=== PATIENT | female | born 1975 | race Two or more races ===

== ENCOUNTER 2017-02-04 11:08 | Emergency (ER) | payer MEDICAID, MEDICARE ==
[~2017-02-04] VITALS: Ht 165.1 cm; Wt 105.0 kg
[2017-02-04 12:49] VITALS: BP 132/72
== END 2017-02-04 12:59 | disposition home or self-care (01) ==
LOC: ER 12:33
DX: J45.909 Unspecified asthma, uncomplicated (principal)
CPT/HCPCS: 71010; 81025; 99283

== ENCOUNTER 2017-07-26 08:45 | Emergency (ER) | payer MEDICARE ==
[~2017-07-26] VITALS: Ht 157.5 cm; Wt 100.0 kg
[2017-07-26 08:56] VITALS: BP 144/79
[2017-07-26] MEDS ORDERED: IBUPROFEN 400MG TABLET PO ONE (12:15)
== END 2017-07-26 13:56 | disposition left against medical advice (07) ==
LOC: ER 09:05
DX: R05 Cough (principal); R07.89 Other chest pain
CPT/HCPCS: 99281

== ENCOUNTER 2017-11-03 20:38 | Emergency (ER) | payer MEDICARE ==
[~2017-11-03] VITALS: Ht 154.9 cm; Wt 102.0 kg
[2017-11-03] MEDS ORDERED: SODIUM CHLORIDE 0.9% 1,000 ML IV ONE (21:40)
[2017-11-03] MEDS ORDERED: KETOROLAC 30MG/ML VIAL IV STA (21:40)
[2017-11-03 22:04] LABS: BASOPHILS % 1.1 % (0.0-2.0); EOSINOPHILS % 10.4 % (0.0-5.0); HEMATOCRIT. 36.2 % (36.0-48.0); HEMOGLOBIN. 12.1 g/dL (12.0-16.0); LYMPHOCYTES % 28.5 % (20.0-50.0); MEAN CORPUSCULAR HEMOGLOBIN 29.4 pg (28.0-32.0); MEAN CORPUSCULAR VOLUME 88.4 fL (81.0-99.0); MEAN PLATELET VOLUME 9.6 fl (7.4-10.4); MONOCYTES % 6.9 % (2.0-8.0); NEUTROPHILS % 53.1 % (40.0-76.0); PLATELET 176 x1000/uL (130-400); RED CELL DISTRIBUTION WIDTH 13.9 % (11.6-14.6)
[2017-11-03 22:06] LABS: CHLORIDE 107 mEq/L (98-107)
[2017-11-03 22:07] LABS: CLARITY URINE CLEAR (CLEAR); COLOR URINE YELLOW (YELLOW); KETONES URINE NEGATIVE (NEGATIVE); LEUKOCYTE ESTERASE URINE 1+ (NEGATIVE); NITRITE URINE NEGATIVE (NEGATIVE); OCCULT BLOOD URINE NEGATIVE (NEGATIVE); PH URINE 6.5 (4.5-8.0); PROTEIN URINE NEGATIVE (NEGATIVE); SPECIFIC GRAVITY URINE 1.021 (1.005-1.030); UROBILINOGEN URINE 0.2 E.U./dL (0.2-1.0)
[2017-11-03 22:10] LABS: PROTHROMBIN TIME 10.1 sec (9.4-11.6)
[2017-11-03 22:15] LABS: HCG SCREEN NEGATIVE
[2017-11-04 00:45] VITALS: BP 128/75
== END 2017-11-04 00:46 | disposition home or self-care (01) ==
LOC: ER 21:32
DX: N20.0 Calculus of kidney (principal); K76.0 Fatty (change of) liver, not elsewhere classified; R07.9 Chest pain, unspecified; E78.00 Pure hypercholesterolemia, unspecified; E78.5 Hyperlipidemia, unspecified
CPT/HCPCS: 36415; 71045; 74176; 76705; 80053; 81003; 81025; 83605; 83690; 84484; 84703; 85025; 85610; 93005; 96374; 99285; J1885; J7030; Z7610

== ENCOUNTER 2017-12-09 20:08 | Emergency (ER) | payer MEDICARE ==
[~2017-12-09] VITALS: Ht 157.5 cm; Wt 100.0 kg
[2017-12-09 20:15] VITALS: BP 142/83
== END 2017-12-09 21:01 | disposition left against medical advice (07) ==
LOC: ER 20:08
DX: Z53.21 Procedure and treatment not carried out due to patient leaving prior to being seen by health care provider (principal)

== ENCOUNTER 2019-01-06 08:56 | Emergency (ER) | payer MEDICAID, MEDICARE ==
[~2019-01-06] VITALS: Ht 160 cm; Wt 68.0 kg
[2019-01-06] MEDS ORDERED: KETOROLAC 30MG/ML VIAL IV STA (10:28)
[2019-01-06] MEDS ORDERED: SODIUM CHLORIDE 0.9% 1,000 ML IV ONE (10:28)
[2019-01-06] MEDS ORDERED: DEXAMETHASONE 10 MG/ML VIAL IV ONE (10:30)
[2019-01-06 11:28] LABS: CLARITY URINE CLOUDY (CLEAR); COLOR URINE YELLOW (YELLOW); KETONES URINE NEGATIVE (NEGATIVE); LEUKOCYTE ESTERASE URINE 3+ (NEGATIVE); NITRITE URINE NEGATIVE (NEGATIVE); OCCULT BLOOD URINE TRACE (NEGATIVE); PH URINE 6.5 (4.5-8.0); PROTEIN URINE NEGATIVE (NEGATIVE); UROBILINOGEN URINE 0.2 E.U./dL (0.2-1.0)
[2019-01-06] MEDS ORDERED: CEFTRIAXONE 1 G PREMIX 50 ML IV ONE (12:30)
[2019-01-06 14:00] VITALS: BP 128/74
== END 2019-01-06 14:30 | disposition home or self-care (01) ==
LOC: ER 09:09
DX: J06.9 Acute upper respiratory infection, unspecified (principal); N39.0 Urinary tract infection, site not specified; F41.9 Anxiety disorder, unspecified; F32.9 Major depressive disorder, single episode, unspecified; E78.00 Pure hypercholesterolemia, unspecified; I10 Essential (primary) hypertension
CPT/HCPCS: 71045; 81003; 81025; 87070; 87086; 87430; 87804; 93005; 96365; 96375; 99284; J0696; J1100; J1885; J7030

== ENCOUNTER 2019-05-23 23:25 | Emergency (ER) | payer MEDICAID ==
[~2019-05-23] VITALS: Ht 162.6 cm; Wt 100.0 kg
[2019-05-23 23:27] VITALS: BP 140/80
[2019-05-24] MEDS ORDERED: HYDROCODONE/ACETAMINOPHEN 5/325MG TABLET PO ONE (00:15)
[2019-05-24 00:26] LABS: CLARITY URINE CLOUDY (CLEAR); COLOR URINE ORANGE (YELLOW); KETONES URINE NEGATIVE (NEGATIVE); LEUKOCYTE ESTERASE URINE 2+ (NEGATIVE); NITRITE URINE POSITIVE (NEGATIVE); OCCULT BLOOD URINE NEGATIVE (NEGATIVE); PROTEIN URINE TRACE (NEGATIVE); SPECIFIC GRAVITY URINE 1.017 (1.005-1.030)
[2019-05-24 01:14] LABS: CHLORIDE 107 mEq/L (98-107)
[2019-05-24 02:08] LABS: BASOPHILS % 1.4 % (0.0-2.0); HEMATOCRIT. 35.1 % (36.0-48.0); HEMOGLOBIN. 11.8 g/dL (12.0-16.0); LYMPHOCYTES % 35.8 % (20.0-50.0); MEAN CORPUSCULAR HEMOGLOBIN 29.9 pg (28.0-32.0); MEAN CORPUSCULAR VOLUME 89.3 fL (81.0-99.0); MEAN PLATELET VOLUME 9.1 fl (7.4-10.4); MONOCYTES % 7.5 % (2.0-8.0); NEUTROPHILS % 45.3 % (40.0-76.0); PLATELET 182 x1000/uL (130-400); RED BLOOD CELL COUNT 3.93 mill/uL (4.2-5.4); RED CELL DISTRIBUTION WIDTH 14.9 % (11.6-14.6)
[2019-05-24] MEDS ORDERED: NITROFURANTOIN 100MG M/M CAPSULE PO ONE (02:45)
== END 2019-05-24 03:43 | disposition home or self-care (01) ==
LOC: ER 23:25
DX: M79.662 Pain in left lower leg (principal); M79.661 Pain in right lower leg; N39.0 Urinary tract infection, site not specified; I12.9 Hypertensive chronic kidney disease with stage 1 through stage 4 chronic kidney disease, or unspecified chronic kidney disease; N18.3 Chronic kidney disease, stage 3 (moderate); E11.9 Type 2 diabetes mellitus without complications; F32.9 Major depressive disorder, single episode, unspecified; E78.00 Pure hypercholesterolemia, unspecified; K76.9 Liver disease, unspecified; Z98.890 Other specified postprocedural states
CPT/HCPCS: 36415; 80048; 81003; 81025; 93970; 99284

== ENCOUNTER 2020-05-23 18:35 | Emergency (ER) | payer MEDICAID ==
[~2020-05-23] VITALS: Ht 160 cm; Wt 102.0 kg
[2020-05-23 18:45] VITALS: BP 124/67
[2020-05-23] MEDS ORDERED: ACETAMINOPHEN 325MG TABLET PO ONE (19:15)
[2020-05-23] MEDS ORDERED: OSELTAMIVIR 75MG CAPSULE PO ONE (20:00)
== END 2020-05-23 20:53 | disposition home or self-care (01) ==
LOC: ER 18:35
DX: B34.9 Viral infection, unspecified (principal); I10 Essential (primary) hypertension; E11.9 Type 2 diabetes mellitus without complications; E78.00 Pure hypercholesterolemia, unspecified; Z03.818 Encounter for observation for suspected exposure to other biological agents ruled out
CPT/HCPCS: 87635; 99283; C9803

== ENCOUNTER 2021-02-13 22:05 | Emergency (ER) | payer MEDICAID, OTHER ==
[~2021-02-13] VITALS: Ht 162.6 cm; Wt 79.0 kg
[~2021-02-13 22:05] MED LIST: ARIP10TA16 MT; DULA0.75 SQ; DULA1.5P SQ; ESCI20TA37 PO; INSU100I24 SQ; LORA2TAB95 PO; SIMV80TA90 MT
[2021-02-13 22:23] VITALS: BP 134/69
== END 2021-02-14 00:30 | disposition left against medical advice (07) ==
LOC: ER 22:05
DX: Z53.21 Procedure and treatment not carried out due to patient leaving prior to being seen by health care provider (principal)

== ENCOUNTER 2021-02-23 21:13 | Emergency (ER) | payer OTHER | END 2021-02-23 22:17 | disposition left against medical advice (07) | LOC: ER 21:13 | DX: R07.89 Other chest pain (principal); Z53.21 Procedure and treatment not carried out due to patient leaving prior to being seen by health care provider ==

== ENCOUNTER 2021-09-15 07:12 | Emergency (ER) | payer OTHER ==
[~2021-09-15] VITALS: Ht 167.6 cm; Wt 132.0 kg
[~2021-09-15 07:12] MED LIST changes: -ARIP10TA16 MT; +ARIP10TA56 MT
[2021-09-15 08:24] LABS: CHLORIDE 103 mEq/L (98-107)
[2021-09-15 08:28] LABS: BASOPHILS % 0.6 % (0.0-2.0); EOSINOPHILS % 2.9 % (0.0-5.0); HEMATOCRIT. 37.2 % (36.0-48.0); HEMOGLOBIN. 12.6 g/dL (12.0-16.0); LYMPHOCYTES % 19.9 % (20.0-50.0); MEAN CORPUSCULAR VOLUME 85.9 fL (81.0-99.0); MONOCYTES % 7.5 % (2.0-8.0); NEUTROPHILS % 69.1 % (40.0-76.0); PLATELET 143 x1000/uL (130-400); RED BLOOD CELL COUNT 4.33 mill/uL (4.2-5.4); RED CELL DISTRIBUTION WIDTH 14.1 % (11.6-14.6)
[2021-09-15 08:41] LABS: HCG SCREEN NEGATIVE
[2021-09-15] MEDS ORDERED: MORPHINE SULFATE 4 MG/ML CPJ (NOT FOR IM USE) IV ONE (08:45)
[2021-09-15] MEDS ORDERED: KETOROLAC 30MG/ML VIAL IV ONE (12:45)
[2021-09-15] MEDS ORDERED: SULF1TAB48 PO (13:39)
[2021-09-15] MEDS ORDERED: CEPH500T PO (13:39)
[2021-09-15] MEDS ORDERED: IOHEXOL-350 100 ML BOTTLE ONE (14:22)
[2021-09-15 15:00] VITALS: BP 120/71
== END 2021-09-15 15:17 | disposition home or self-care (01) ==
LOC: ER 07:12
DX: L03.311 Cellulitis of abdominal wall (principal); R07.2 Precordial pain; I10 Essential (primary) hypertension; E11.9 Type 2 diabetes mellitus without complications; E78.5 Hyperlipidemia, unspecified
CPT/HCPCS: 36415; 71045; 71275; 74177; 80053; 83605; 83880; 84484; 84703; 85025; 85379; 93005; 96374; 96375; 99285; J1885; J2270; Q9967